=== PATIENT | female | born 1960 | race Caucasian/White ===

== ENCOUNTER 2019-11-02 11:34 | Emergency (ER) | payer MEDICAID ==
[2019-11-02 12:24] LABS: ABSOLUTE BASOPHILS # (AUTO) 0.1 10^3/uL (0.0-0.2); ABSOLUTE EOSINOPHILS # (AUTO) 0.1 10^3/uL (0.0-0.6); ABSOLUTE LYMPHOCYTES (AUTO) 2.5 10^3/uL (0.5-4.7); ABSOLUTE MONOCYTES (AUTO) 0.6 10^3/uL (0.1-1.4); ABSOLUTE NEUT (AUTO) 8.4 10^3/uL (1.7-8.2); BASOPHILS % (AUTO) 0.6 % (0-2); EOSINOPHILS % (AUTO) 0.8 % (0-6); HEMATOCRIT 36.1 % (36.0-47.0); HEMOGLOBIN 12.4 g/dL (12.0-15.5); LYMPHOCYTES % (AUTO) 21.2 % (13-45); MEAN CORPUSCULAR HEMOGLOBIN 29.2 pg (27.0-33.4); MEAN CORPUSCULAR HGB CONC 34.3 g/dL (32.0-36.0); MEAN CORPUSCULAR VOLUME 85 fl (80-97); MONOCYTES % (AUTO) 5.1 % (3-13); PLATELET COUNT 332 10^3/uL (150-450); RED BLOOD COUNT 4.24 10^6/uL (3.72-5.28); RED CELL DISTRIBUTION WIDTH 14.3 % (11.5-14.0); SEGMENTED NEUTROPHILS % (AUTO) 72.3 % (42-78); TOTAL CELLS COUNTED % (AUTO) 100 %; WHITE BLOOD COUNT 11.7 10^3/uL (4.0-10.5)
[2019-11-02 12:49] LABS: ALKALINE PHOSPHATASE 123 U/L (38-126); ANION GAP 8 (5-19); ASPARTATE AMINO TRANSFERASE 19 U/L (14-36); BILIRUBIN,DIRECT 0.3 mg/dL (0.0-0.4); BILIRUBIN,TOTAL 0.6 mg/dL (0.2-1.3); BLOOD UREA NITROGEN 17 mg/dL (7-20); CALCIUM 9.6 mg/dL (8.4-10.2); CARBON DIOXIDE 29 mmol/L (22-30); CHLORIDE 101 mmol/L (98-107); CREATINE KINASE 61 U/L (30-135); GLUCOSE 158 mg/dL (75-110); TOTAL PROTEIN 6.9 g/dL (6.3-8.2)
[2019-11-02 12:56] LABS: CREATINE KINASE MB 1.29 ng/mL (<4.55)
[2019-11-02 13:00] LABS: TROPONIN I < 0.012 ng/mL
[2019-11-02] MEDS ORDERED: NORMAL SALINE 1000 ML 1,000 ML IV ONE (13:45)
--- NOTE | 2019-11-02 14:01 | ER Document Report ---
ED General - General Stated Complaint: POSSIBLE SYNCOPE Time Seen by Provider: 11/02/19 13:20 Notes: 50-year-old female was brought into the ER for evaluation of syncope. The patient was moved from [facility] to here. They spent the whole day in the car yesterday. The only thing the patient had to drink his Mountain Dew all day. This morning the patient felt weak. Upon trying to stand the patient had a syncopal episode daughter states that the patient had to go to the bathroom and asked for her help and she began rocking back and forth and as they pulled her up but she came to the standing position she passed out this only lasted for several seconds and then she became awake again there was no shaking activity. No altered mental status. Patient states she is ready to go home the daughter would like her checked out. - Related Data Allergies/Adverse Reactions: levofloxacin [From Levaquin] Allergy (Verified 11/02/19 14:03) Penicillins Allergy (Verified 11/02/19 14:03) Past Medical History - Social History Smoking Status: Former Smoker Family History: Reviewed & Not Pertinent Review of Systems - Review of Systems Constitutional: denies: Chills, Fever Cardiovascular: denies: Chest pain, Palpitations, Heart racing, Dyspnea, Edema Respiratory: denies: Hurts to breathe, Hemoptysis, Short of breath, Wheezing Gastrointestinal: No symptoms reported Genitourinary: denies: Burning, Dysuria, Flank pain, Hematuria Female Genitourinary: No symptoms reported Musculoskeletal: No symptoms reported Skin: No symptoms reported Hematologic/Lymphatic: No symptoms reported Neurological/Psychological: Lost consciousness. denies: Anxiety, Seizure, Headaches, Numbness, Tingling -: Yes All other systems reviewed and negative Physical Exam - Vital signs Vitals: Temp 97.7 F 11/02/19 11:35 - Notes Notes: 50-year-old female who had a syncopal episode. Likely orthostatic hypotension. She did not hydrate at all yesterday. She only drank Mountain Dew. She was in a car all day. She is on many blood pressure medicine also other medicine like gabapentin. Likely the patient was dehydrated. We are doing a full work-up to look for any cause of stroke or cardiovascular event. Or significant metabolic abnormalities. Course - Re-evaluation Re-evalutation: 11/02/19 17:34 58-year-old female who presents after an episode of syncope. The patient was in a car all day yesterday and only drank Mountain Dew. She also took her blood pressure meds on an empty stomach this morning and had not eaten. Patient had multiple reasons for syncope. She received a liter of IV fluids here. She ate and is feeling much better. The patient does not have headache or extremity numbness tingling weakness has a history of old stroke no new neuro deficits. Patient felt much better after IV fluids. Urine was not infected. Full work-up and observation patient is continued to do better she will establish with a [facility] doctor here. Explained to her the importance of hydrating not with Mountain Dew but with water. Also eating in the morning before taking blood pressure medicine will help. Additional issues return to the ER. They verbalized understanding - Vital Signs Vital signs: Temp Pulse Resp BP Pulse Ox 97.7 F 18 144/72 H 94 11/02/19 11:35 11/02/19 17:01 11/02/19 16:01 11/02/19 17:01 - Laboratory Result Diagrams: 11/02/19 12:06 11/02/19 12:06 Laboratory results interpreted by me: 11/02/19 11/02/19 11/02/19 12:06 12:06 15:42 WBC 11.7 H RDW 14.3 H Absolute Neuts (auto) 8.4 H Glucose 158 H Urine Protein 30 H Ur Leukocyte Esterase TRACE H - Diagnostic Test Radiology reviewed: Reports reviewed Radiology results interpreted by me: 11/02/19 15:23 Chest X-Ray 11/02/19 13:45 IMPRESSION: NO ACUTE RADIOGRAPHIC FINDING IN THE CHEST. Head CT 11/02/19 13:45 IMPRESSION: 1. Mild chronic changes of atrophy and small vessel disease. Old right temporal lobe infarct. No acute intracranial event. 2. Sphenoid sinusitis. EVIDENCE OF ACUTE STROKE: NO. - EKG Interpretation by Pr EKG shows normal: Sinus rhythm Voltage: Consistent with LVH Heart block present: 1st Degree When compared to previous EKG there are: Previous EKG unavailable Discharge - Discharge Clinical Impression: Syncope Qualifiers: Syncope type: unspecified Qualified Code(s): R55 - Syncope and collapse Condition: Good Disposition: HOME, SELF-CARE Instructions: Syncopal Episode ([facility]), Dehydration ([facility]) Additional Instructions: Drink plenty of fluids and establish a local family doctor.
--- NOTE | 2019-11-02 14:23 | RADIOLOGY REPORT (SQ) ---
EXAM DESCRIPTION: CT HEAD WITHOUT IMAGES COMPLETED DATE/TIME: 11/02/2019 2:08 pm REASON FOR STUDY: Syncope COMPARISON: None. TECHNIQUE: Axial images acquired through the brain without intravenous contrast. Images reviewed wi th bone, brain and subdural windows. Additional sagittal and coronal reconstructions were generated. Images stored on PACS. All CT scanners at this facility use dose modulation, iterative reconstruction, and/or weight based d osing when appropriate to reduce radiation dose to as low as reasonably achievable (ALARA). [facility]: Dose Right [facility]: CareDose [facility]: Dose Right [facility]: Teradose 4D [facility]: Mainstream Data RADIATION DOSE: CT Rad equipment meets quality standard of care and radiation dose reduction techniq ues were employed. CTDIvol: 53.2 mGy. DLP: 1044 mGy-cm. mGy. LIMITATIONS: None. FINDINGS: VENTRICLES: Prominent. CEREBRUM: No masses. No hemorrhage. No midline shift. Areas of low density in the white matter mos t likely due to chronic micro-vascular ischemic change. No evidence for acute infarction. There is an old right occipital lobe infarct. There is an old right basal ganglia infarct. CEREBELLUM: No masses. No hemorrhage. No alteration of density. No evidence for acute infarction. EXTRAAXIAL SPACES: Mild age-related involutional change. No fluid collections. No masses. ORBITS AND GLOBE: No intra- or extraconal masses. Normal contour of globe without masses. CALVARIUM: No fracture. PARANASAL SINUSES: There is an air-fluid level in the right sphenoid sinus. SOFT TISSUES: No mass or hematoma. OTHER: No other significant finding. IMPRESSION: 1. Mild chronic changes of atrophy and small vessel disease. Old right temporal lobe in farct. No acute intracranial event. 2. Sphenoid sinusitis. EVIDENCE OF ACUTE STROKE: NO. TECHNICAL DOCUMENTATION: JOB ID: [id number] Quality ID # [id number]: Final reports with documentation of one or more dose reduction techniques (e.g., Au tomated exposure control, adjustment of the mA and/or kV according to patient size, use of iterative reconstruction technique) 2010 [employer]- All Rights Reserved Reading location - IP/workstation name: [email or web address]
--- NOTE | 2019-11-02 14:48 | RADIOLOGY REPORT (SQ) ---
EXAM DESCRIPTION: CHEST SINGLE VIEW IMAGES COMPLETED DATE/TIME: 11/02/2019 2:35 pm REASON FOR STUDY: Syncope COMPARISON: None. EXAM PARAMETERS: NUMBER OF VIEWS: One view. TECHNIQUE: Single frontal radiographic view of the chest acquired. RADIATION DOSE: NA LIMITATIONS: None. FINDINGS: LUNGS AND PLEURA: No opacities, masses or pneumothorax. No pleural effusion. MEDIASTINUM AND HILAR STRUCTURES: No masses. Contour normal. HEART AND VASCULAR STRUCTURES: Heart normal in size. Normal vasculature. BONES: No acute findings. HARDWARE: Loop recorder overlies the left hemithorax. OTHER: No other significant finding. IMPRESSION: NO ACUTE RADIOGRAPHIC FINDING IN THE CHEST. TECHNICAL DOCUMENTATION: JOB ID: [id number] 2010 [employer]- All Rights Reserved Reading location - IP/workstation name: [email or web address]
[2019-11-02 16:18] LABS: APPEARANCE,URINE SLIGHTLY-CLOUDY; BILIRUBIN,URINE NEGATIVE (NEGATIVE); COLOR,URINE YELLOW; GLUCOSE, URINE NEGATIVE (NEGATIVE); KETONES,URINE NEGATIVE (NEGATIVE); LEUKOCYTE ESTERASE,URINE TRACE (NEGATIVE); NITRITE,URINE NEGATIVE (NEGATIVE); PROTEIN,URINE 30 mg/dL (NEGATIVE); UROBILINOGEN,URINE NEGATIVE mg/dL (<2.0)
[2019-11-02 18:04] VITALS: BP 163/72
--- NOTE | 2019-11-03 08:26 | EKG REPORT ---
SEVERITY:- ABNORMAL ECG - SINUS RHYTHM FIRST DEGREE AV BLOCK PROBABLE LVH WITH SECONDARY REPOL ABNRM BORDERLINE PROLONGED QT INTERVAL : Confirmed by: Nia Foley MD 03-Nov-2019 08:26:01
== END 2019-11-02 18:05 | disposition home or self-care (01) ==
LOC: ER 11:34
DX: R55 Syncope and collapse (principal); J32.3 Chronic sphenoidal sinusitis; I44.0 Atrioventricular block, first degree; Z79.899 Other long term (current) drug therapy; Z88.1 Allergy status to other antibiotic agents; Z88.0 Allergy status to penicillin; Z87.891 Personal history of nicotine dependence; Z86.73 Personal history of transient ischemic attack (TIA), and cerebral infarction without residual deficits
CPT/HCPCS: 93005; 99285; 96360; 36415; 82553; 82550; 85025; 80053; 81001; 84484; 71045; 70450; 93010; J7030